=== PATIENT | male | born 1970 | race Native Hawaiian/Other Pacific Islander ===

== ENCOUNTER 2018-12-08 09:43 | Day surgery (SDC) | payer OTHER | END 2018-12-08 11:39 | disposition home or self-care (01) | LOC: OR 09:43 | PROC: 3E0T3TZ Introduction of Destructive Agent into Peripheral Nerves and Plexi, Percutaneous Approach (ICD-10-PCS; principal; 2018-12-08) | PROC: BR16YZZ Fluoroscopy of Lumbar Facet Joint(s) using Other Contrast (ICD-10-PCS; 2018-12-08) | DX: M47.817 Spondylosis without myelopathy or radiculopathy, lumbosacral region (principal) | CPT/HCPCS: J1020; J2001 ==

== ENCOUNTER 2019-01-19 09:19 | Day surgery (SDC) | payer OTHER | END 2019-01-19 12:55 | disposition home or self-care (01) | LOC: OR 09:19 | PROC: 3E0T3TZ Introduction of Destructive Agent into Peripheral Nerves and Plexi, Percutaneous Approach (ICD-10-PCS; principal; 2019-01-19) | PROC: BR16YZZ Fluoroscopy of Lumbar Facet Joint(s) using Other Contrast (ICD-10-PCS; 2019-01-19) | DX: M47.816 Spondylosis without myelopathy or radiculopathy, lumbar region (principal) | CPT/HCPCS: J2001 ==

== ENCOUNTER 2019-04-20 08:52 | Day surgery (SDC) | payer OTHER | END 2019-04-20 10:13 | disposition home or self-care (01) | LOC: OR 08:52 | PROC: 3E0T3BZ Introduction of Anesthetic Agent into Peripheral Nerves and Plexi, Percutaneous Approach (ICD-10-PCS; principal; 2019-04-20) | DX: M25.561 Pain in right knee (principal); M17.11 Unilateral primary osteoarthritis, right knee | CPT/HCPCS: J2001 ==

== ENCOUNTER 2019-05-11 09:38 | Day surgery (SDC) | payer OTHER | END 2019-05-11 13:52 | disposition home or self-care (01) | LOC: OR 09:38 | PROC: 3E0T3BZ Introduction of Anesthetic Agent into Peripheral Nerves and Plexi, Percutaneous Approach (ICD-10-PCS; principal; 2019-05-11) | PROC: BQ1 Imaging, Non-Axial Lower Bones, Fluoroscopy (ICD-10-PCS; 2019-05-11) | DX: M25.561 Pain in right knee (principal); M17.11 Unilateral primary osteoarthritis, right knee | CPT/HCPCS: J2001 ==

== ENCOUNTER 2019-06-22 08:47 | Day surgery (SDC) | payer OTHER | END 2019-06-22 10:56 | disposition home or self-care (01) | LOC: OR 08:47 | PROC: 3E0T3BZ Introduction of Anesthetic Agent into Peripheral Nerves and Plexi, Percutaneous Approach (ICD-10-PCS; principal; 2019-06-22) | PROC: BQ1 Imaging, Non-Axial Lower Bones, Fluoroscopy (ICD-10-PCS; 2019-06-22) | DX: M25.561 Pain in right knee (principal); M17.11 Unilateral primary osteoarthritis, right knee | CPT/HCPCS: J2001 ==